=== PATIENT | male | born 1980 | race Two or more races ===

== ENCOUNTER 2016-11-29 10:24 | Emergency (ER) | payer SELFPAY ==
[~2016-11-29] VITALS: Ht 177.8 cm; Wt 77.1 kg
[2016-11-29] MEDS ORDERED: LIDOCAINE 1%-EPI 1:100,000 20 ML VIAL TP ONE (10:30)
[2016-11-29] MEDS ORDERED: NEOMY/BACITRA/POLYMYXIN B OINT UD PACKET TP ONE (10:58)
[2016-11-29 11:02] VITALS: BP 119/88
--- NOTE | 2016-11-29 11:02 | NUR ---
Patient discharged to home in stable conditon. Written and verbal after care instructions given. Patient verbalizes understanding of instructions.
== END 2016-11-29 11:02 | disposition home or self-care (01) ==
LOC: ER 10:26
DX: S51.811A Laceration without foreign body of right forearm, initial encounter (principal); X58.XXXA Exposure to other specified factors, initial encounter; Y93.89 Activity, other specified; Y99.8 Other external cause status; Y92.89 Other specified places as the place of occurrence of the external cause
CPT/HCPCS: 12001; 99283; A4217; A4663; J3490

== ENCOUNTER 2016-12-01 10:50 | Emergency (ER) | payer SELFPAY ==
[~2016-12-01] VITALS: Ht 172.7 cm; Wt 77.1 kg
--- NOTE | 2016-12-01 11:09 | NUR ---
DR STEPHENSON AT THE BEDSIDE FOR EVAL AND EXAM.
--- NOTE | 2016-12-01 11:20 | NUR ---
CLEAN SUTURE SITE AND DRESSING APPLIED PER MD ORDER. PT DENIES PAIN.
[2016-12-01 11:31] VITALS: BP 106/75
--- NOTE | 2016-12-01 11:31 | NUR ---
Patient discharged to home in stable conditon. Written and verbal after care instructions given. Patient verbalizes understanding of instructions.
== END 2016-12-01 11:31 | disposition home or self-care (01) ==
LOC: ER 10:50
DX: S51.811D Laceration without foreign body of right forearm, subsequent encounter (principal); X58.XXXD Exposure to other specified factors, subsequent encounter; Y99.8 Other external cause status; Y92.89 Other specified places as the place of occurrence of the external cause
CPT/HCPCS: 99282; A4663

== ENCOUNTER 2016-12-08 09:30 | Emergency (ER) | payer SELFPAY ==
[~2016-12-08] VITALS: Ht 172.7 cm; Wt 77.1 kg
--- NOTE | 2016-12-08 09:46 | NUR ---
pt is in room #2b. dr wu evaluated the pt.
--- NOTE | 2016-12-08 10:30 | NUR ---
removed the sutures on 2 areas on the right forearm per md order.
[2016-12-08] MEDS ORDERED: NEOMY/BACITRA/POLYMYXIN B OINT UD PACKET TP ONE (11:00)
--- NOTE | 2016-12-08 11:12 | NUR ---
PT WAS D/C TO HOME . D/C INSTRUCTIONS GIVEN TO THE PT. NO BLEEDING. DRESSLING IS INTACT.
[2016-12-08 11:15] VITALS: BP 136/68
== END 2016-12-08 11:16 | disposition home or self-care (01) ==
LOC: ER 09:30
DX: T81.30XA Disruption of wound, unspecified, initial encounter (principal); F17.200 Nicotine dependence, unspecified, uncomplicated
CPT/HCPCS: 99283; A4663